=== PATIENT | male | born 1955 | race Caucasian/White ===

== ENCOUNTER 2017-07-12 19:57 | Emergency (ER) | payer OTHER ==
[2017-07-12 20:05] VITALS: RESP 18; TEMP 98.2
--- NOTE | 2017-07-12 20:13 | CPEKG ---
Heart Rate: 77 RR Interval: 779 P-R Interval: 204 QRSD Interval: 94 QT Interval: 384 QTC Interval: 435 P [place]: 39 QRS [place]: -23 T Wave [place]: 47 EKG Severity - OTHERWISE NORMAL ECG - EKG Impression: SINUS RHYTHM EKG Impression: BORDERLINE LEFT AXIS DEVIATION Electronically Signed By: Evangelina Mckeon 12-Jul-2017 22:35:19
--- NOTE | 2017-07-12 20:21 | EDPHY ---
H & P Time Seen by Provider: 07/12/17 20:08 HPI/ROS: CHIEF COMPLAINT: AICD fired HISTORY OF PRESENT ILLNESS: Patient is a 62-year-old male with a history of ventricular tachycardia status post AICD placement an ablation x2 presents to the emergency department after having his AICD fire. Patient states that he was lying down in bed when he began to feel dizzy. He placed his personal pulse oximeter which initially stated heart rate was 155 with a saturation of 97 %. His heart rate then went up to 200. The AICD fired. He denies any chest pain or palpitations. No shortness of breath. No recent illnesses. He has had no nausea or vomiting. No diaphoresis. He is asymptomatic at this time. REVIEW OF SYSTEMS: My complete review of systems is negative except as mentioned in the HPI. Past Medical/Surgical History: Includes ventricular tachycardia, bronchitis, chronic fatigue, anxiety Past surgical history: Includes AICD placement, tonsillectomy, appendectomy, ablation x2 Social history: Patient is . Does not smoke. He denies alcohol use. Smoking Status: Former smoker Physical Exam: Vitals noted GENERAL: Well-appearing, in no acute distress, alert. HEENT: Eyes normal to inspection, normal pharynx, no signs of dehydration. NECK: No thyromegaly, no lymphadenopathy, supple. RESPIRATORY: Clear to auscultation bilaterally, no rales, rhonchi or wheezing. CVS: Regular rate and rhythm, no rubs, murmurs, or gallops. Chest wall: Left upper chest AICD in place. No discoloration of the skin. ABDOMEN: Soft, nontender, nondistended, no organomegaly. BACK: Normal to inspection, no CVA tenderness. SKIN: Normal color, no rash, warm, dry. No pallor. EXTREMITIES: No pedal edema, no calf tenderness, no Homans sign or cords, no joint swelling. NEURO/PSYCH: Alert and oriented x3, normal mood and affect, normal motor sensory exam. Constitutional: Initial Vital Signs Temperature (C) 36.8 C 07/12/17 20:00 Heart Rate 81 07/12/17 20:00 Respiratory Rate 18 07/12/17 20:00 Blood Pressure 149/97 H 07/12/17 20:00 O2 Sat (%) 97 07/12/17 20:00 O2 Delivery Mode Room Air Allergies/Adverse Reactions: No Known Allergies Allergy (Verified 07/12/17 20:05) Home Medications: Medication Instructions Recorded Ascorbic Acid [Vitamin C 500 mg 500 mg PO BID 05/02/15 (*)] Cholecalciferol Vit D3 [Vitamin D3 2,000 units PO DAILY 05/02/15 2000 units] Herbals/Supplements -Info Only 1 ea PO DAILY 05/02/15 Aspirin [Aspirin 81mg (*)] 81 mg PO DAILY #0 tab 05/04/15 [place]-3 Fatty Acids [Fish Oil 1000 1,000 mg PO HS 06/01/15 mg (*)] SOTALOL 07/12/17 Medical Decision Making ED Course/Re-evaluation: In the emergency department I discussed possible etiologies with the patient. I answered all his questions. IV was placed. Laboratory studies, EKG and chest x-ray were obtained. I obtained his AICD cart and called to have his AICD interrogated. EKG: Sinus rhythm at 77. Borderline left axis deviation. Normal intervals. No ST or T-wave abnormalities. 2034: I discussed the case with Dr. Harmon from Cardiology. He reviewed the patient's record. He recommended laboratory studies, ekg, no CXR and no need for interrogation this evening. Cardiology will see the patient in the office this week. He recommends to continue the sotalol at 160 mg twice daily. 1055p: Patient's troponin, chemistry panel and CBC were normal. I discussed the results with the patient. I answered all his questions. Patient will follow up with Cardiology. He is given warnings prior to leaving. Differential Diagnosis: My differential includes but is not limited to ventricular tachycardia, dysrhythmia, ACS, acute GA, AICD malfunction - Data Points Laboratory Results: Laboratory Results 07/12/17 20:20 07/12/17 20:20 07/12/17 07/12/17 20:20 20:20 WBC 8.15 10^3/uL 10^3/uL (3.80-9.50) RBC 5.73 10^6/uL 10^6/uL (4.40-6.38) Hgb 18.1 g/dL H g/dL (13.7-17.5) Hct 50.7 % % (40.0-51.0) MCV 88.5 fL fL (81.5-99.8) MCH 31.6 pg pg (27.9-34.1) MCHC 35.7 g/dL g/dL (32.4-36.7) RDW 12.7 % % (11.5-15.2) Plt Count 265 10^3/uL 10^3/uL (150-400) MPV 9.3 fL fL (8.7-11.7) Neut % (Auto) 44.2 % % (39.3-74.2) Lymph % (Auto) 35.0 % % (15.0-45.0) [place] % (Auto) 13.9 % H % (4.5-13.0) Eos % (Auto) 5.3 % % (0.6-7.6) Baso % (Auto) 1.2 % % (0.3-1.7) Nucleat RBC Rel Count 0.0 % % (0.0-0.2) Absolute Neuts (auto) 3.61 10^3/uL 10^3/uL (1.70-6.50) Absolute Lymphs (auto) 2.85 10^3/uL 10^3/uL (1.00-3.00) Absolute Monos (auto) 1.13 10^3/uL H 10^3/uL (0.30-0.80) Absolute Eos (auto) 0.43 10^3/uL H 10^3/uL (0.03-0.40) Absolute Basos (auto) 0.10 10^3/uL 10^3/uL (0.02-0.10) Absolute Nucleated RBC 0.00 10^3/uL 10^3/uL (0-0.01) Immature Gran % 0.4 % % (0.0-1.1) Immature Gran # 0.03 10^3/uL 10^3/uL (0.00-0.10) Sodium 139 mEq/L mEq/L (134-144) Potassium 4.6 mEq/L mEq/L (3.5-5.2) Chloride 103 mEq/L mEq/L (97-110) Carbon Dioxide 23 mEq/l mEq/l (22-31) Anion Gap 13 mEq/L mEq/L (8-16) BUN 23 mg/dL mg/dL (7-23) Creatinine 1.0 mg/dL mg/dL (0.7-1.3) Estimated GFR > 60 Glucose 101 mg/dL H mg/dL (70-100) Calcium 9.4 mg/dL mg/dL (8.5-10.4) Troponin I 0.014 ng/mL ng/mL (0.000-0.034) Specimen Hemolysis 129 Medications Given: Discontinued Medications Sodium Chloride (Ns) 500 mls @ 1,000 mls/hr IV EDNOW ONE PRN Reason: Protocol Stop: 07/12/17 21:03 Last Admin: 07/12/17 20:41 Dose: 500 mls Departure - Departure Disposition: Home, Routine, Self-Care Clinical Impression: V-tach, AICD discharge Condition: Good Instructions: Tachycardia (ED) Additional Instructions: Return with chest pain, shortness of breath, repeat firing of your AICD, or any other concerns Referrals: Kameron Gorman MD [Primary Care Provider] - 5-7 days, call for appt. Josse Diggs MD [Medical Doctor] - 5-7 days, call for appt.
[2017-07-12] MEDS ORDERED: NS 500 ML IV ONE (20:34)
[2017-07-12 20:50] LABS: % IMMATURE GRANULYOCYTES 0.4 % (0.0-1.1); ABSOLUTE IMMATURE GRANULOCYTES 0.03 10^3/uL (0.00-0.10); ADD DIFF? NO; ADD MORPH? NO; ADD SCAN? NO; ATYPICAL LYMPHOCYTE FLAG 10 (0-99); FRAGMENT RBC FLAG 0 (0-99); HEMATOCRIT 50.7 % (40.0-51.0); HEMOGLOBIN 18.1 g/dL (13.7-17.5); LEFT SHIFT FLG 0 (0-99); LIPEMIA HEMOLYSIS FLAG 90 (0-99); MEAN CELL HEMOGLOBIN 31.6 pg (27.9-34.1); MEAN CELL HEMOGLOBIN CONCENTR. 35.7 g/dL (32.4-36.7); MEAN CELL VOLUME 88.5 fL (81.5-99.8); MEAN PLATELET VOLUME 9.3 fL (8.7-11.7); PLATELET CLUMPS FLAG 10 (0-99); PLATELET COUNT 265 10^3/uL (150-400); RED BLOOD CELL COUNT 5.73 10^6/uL (4.40-6.38); RED CELL DISTRIBUTION WIDTH 12.7 % (11.5-15.2)
[2017-07-12 21:03] LABS: ANION GAP 13 mEq/L (8-16); CALCIUM 9.4 mg/dL (8.5-10.4); CARBON DIOXIDE 23 mEq/l (22-31); CHLORIDE 103 mEq/L (97-110); GLOMERULAR FILTRATION RATE > 60; GLUCOSE 101 mg/dL (70-100); POTASSIUM 4.6 mEq/L (3.5-5.2); SODIUM 139 mEq/L (134-144); SPECIMEN HEMOLYSIS 129
[2017-07-12 21:14] LABS: TROPONIN I 0.014 ng/mL (0.000-0.034)
[2017-07-12 22:18] VITALS: BP 126/73; PULSE 70; O2SAT 92
== END 2017-07-12 22:17 | disposition home or self-care (01) ==
DX: T82.198A Other mechanical complication of other cardiac electronic device, initial encounter (principal); E86.9 Volume depletion, unspecified; Z79.82 Long term (current) use of aspirin; Z87.891 Personal history of nicotine dependence; Y82.8 Other medical devices associated with adverse incidents

== ENCOUNTER 2017-07-18 10:24 | Inpatient (IN) | payer OTHER ==
--- NOTE | 2017-07-18 10:36 | CPEKG ---
Heart Rate: 70 RR Interval: 857 P-R Interval: 228 QRSD Interval: 88 QT Interval: 384 QTC Interval: 415 P [place]: 47 QRS [place]: -30 T Wave [place]: 44 EKG Severity - ABNORMAL ECG - EKG Impression: ATRIAL-PACED COMPLEXES EKG Impression: FIRST DEGREE AV BLOCK EKG Impression: PROBABLE LEFT ATRIAL ABNORMALITY EKG Impression: LEFT AXIS DEVIATION Electronically Signed By: Justin Gaviria 20-Jul-2017 11:04:31
--- NOTE | 2017-07-18 10:42 | EDPHY ---
HPI/HX/ROS/PE/MDM Narrative: CHIEF COMPLAINT: Rapid heart rate, shocked by defibrillator HPI: The patient is a 62 y/o male arriving with his at the referral of Dr. Gaviria for rapid heart rate and shock from his internal defibrillator around 08:30 , about 2 hours ago. He has a history of "v-tach storms" and has been shocked by his defibrillator previously. He was here one week ago for the same issue. Today he was resting outside when he began to feel a rapid heart rate. His home pulseox showed a rate of 185 and he was shocked shortly afterwards. He called his basketball assembler and was referred to the ED. He currently feels fatigued, but otherwise normal. REVIEW OF SYSTEMS: Aside from elements discussed in the HPI, a comprehensive 10-point review of systems was reviewed and is negative. PMH: Ventricular tachycardia, implanted defibrillator SOCIAL HISTORY: at bedside. Lives in [place]. PHYSICAL EXAM: General:Patient is alert, in no acute distress. ENT:Eyes are normal to inspection. ENT inspection normal. Neck: Normal inspection. Full range of motion. Respiratory:No respiratory distress. Breath sounds normal bilaterally. Cardiovascular: Regular rate and rhythm. Strong peripheral pulses. Normal cap refill. Abdomen:The abdomen is nontender to palpation. There are no peritoneal signs. Back: Normal to inspection. No tenderness to palpation. Skin: Normal color. No rash. Warm and dry. Extremities: Normal appearance. Full range of motion. Neuro: Oriented x3. Normal motor function. Normal sensory function. ED Course: This is a 62 y/o male with a history of v-tach and implanted defibrillator who presents after experiencing a rapid heart rate and subsequent shock from his defibrillator. His exam is unremarkable. Plan for IV, labs, EKG, and pacer interrogation by the maitre d. The 12 lead EKG was interpreted by myself. Sinus mechanism. See hard copy and/ or "tracemaster" electronic copy for interpretation. Interrogation showed appropriate shock for VT per interrogator. 1222: Consulted with Dr. Gaviria, patient's basketball assembler. He plans to admit patient here for further evaluation. MDM: This patient presents with recurrent VT, appropriately shocked by AICD. Given his frequent episodes, Dr. Gaviria feels he requires admission and medical treatment. I see no indication of ACS, PE, TAD or PNA. - Data Points Laboratory Results: Laboratory Results 07/18/17 10:40 07/18/17 10:40 07/18/17 07/18/17 10:40 10:40 WBC 5.76 10^3/uL 10^3/uL (3.80-9.50) RBC 6.09 10^6/uL 10^6/uL (4.40-6.38) Hgb 19.0 g/dL H g/dL (13.7-17.5) Hct 54.3 % H % (40.0-51.0) MCV 89.2 fL fL (81.5-99.8) MCH 31.2 pg pg (27.9-34.1) MCHC 35.0 g/dL g/dL (32.4-36.7) RDW 12.8 % % (11.5-15.2) Plt Count 270 10^3/uL 10^3/uL (150-400) MPV 9.1 fL fL (8.7-11.7) Neut % (Auto) 52.3 % % (39.3-74.2) Lymph % (Auto) 25.0 % % (15.0-45.0) [place] % (Auto) 16.1 % H % (4.5-13.0) Eos % (Auto) 4.9 % % (0.6-7.6) Baso % (Auto) 1.4 % % (0.3-1.7) Nucleat RBC Rel Count 0.0 % % (0.0-0.2) Absolute Neuts (auto) 3.01 10^3/uL 10^3/uL (1.70-6.50) Absolute Lymphs (auto) 1.44 10^3/uL 10^3/uL (1.00-3.00) Absolute Monos (auto) 0.93 10^3/uL H 10^3/uL (0.30-0.80) Absolute Eos (auto) 0.28 10^3/uL 10^3/uL (0.03-0.40) Absolute Basos (auto) 0.08 10^3/uL 10^3/uL (0.02-0.10) Absolute Nucleated RBC 0.00 10^3/uL 10^3/uL (0-0.01) Immature Gran % 0.3 % % (0.0-1.1) Immature Gran # 0.02 10^3/uL 10^3/uL (0.00-0.10) Sodium 141 mEq/L mEq/L (134-144) Potassium 4.4 mEq/L mEq/L (3.5-5.2) Chloride 102 mEq/L mEq/L (97-110) Carbon Dioxide 26 mEq/l mEq/l (22-31) Anion Gap 13 mEq/L mEq/L (8-16) BUN 17 mg/dL mg/dL (7-23) Creatinine 1.1 mg/dL mg/dL (0.7-1.3) Estimated GFR > 60 Glucose 69 mg/dL L mg/dL (70-100) Calcium 10.1 mg/dL mg/dL (8.5-10.4) General Time Seen by Provider: 07/18/17 10:34 Initial Vital Signs: Initial Vital Signs Temperature (C) 36.6 C 07/18/17 10:26 Heart Rate 69 07/18/17 10:26 Respiratory Rate 20 07/18/17 10:26 Blood Pressure 106/80 07/18/17 10:26 O2 Sat (%) 96 07/18/17 10:26 O2 Delivery Mode Room Air O2 (L/minute) 2 Allergies/Adverse Reactions: No Known Allergies Allergy (Verified 07/18/17 10:26) Home Medications: Medication Instructions Recorded Ascorbic Acid [Vitamin C 500 mg 500 mg PO BID 05/02/15 (*)] Cholecalciferol Vit D3 [Vitamin D3 2,000 units PO DAILY 05/02/15 2000 units] Herbals/Supplements -Info Only 1 ea PO DAILY 05/02/15 Aspirin [Aspirin 81mg (*)] 81 mg PO DAILY #0 tab 05/04/15 [place]-3 Fatty Acids [Fish Oil 1000 1,000 mg PO HS 06/01/15 mg (*)] Sotalol HCl [SOTALOL] 160 mg PO BID 07/12/17 LORazepam [Ativan (*)] 0.5 - 1 mg PO BID PRN 07/18/17 LORazepam [Ativan (*)] 1 mg PO HS 07/18/17 Melatonin [Melatonin 3 MG (*)] 3 mg PO HS PRN 07/18/17 Mexiletine HCl [Mexitil] 200 mg PO Q8HRS #90 cap 07/20/17 Departure - Departure Disposition: [facility] Inpatient Acute Clinical Impression: Ventricular tachycardia Condition: Fair Report Scribed for: Fran Espana Report Scribed by: Lana Deleon Date of Report: 07/18/17 Time of Report: 10:42 Physician Review and Approval Statement: Portions of this note were transcribed by an ED scribe. I personally performed the history, physical exam, and medical decision making; and confirm the accuracy of the information in the transcribed note.
[2017-07-18 10:47] LABS: % IMMATURE GRANULYOCYTES 0.3 % (0.0-1.1); ABSOLUTE IMMATURE GRANULOCYTES 0.02 10^3/uL (0.00-0.10); ADD DIFF? NO; ADD MORPH? NO; ADD SCAN? NO; ATYPICAL LYMPHOCYTE FLAG 10 (0-99); FRAGMENT RBC FLAG 0 (0-99); HEMATOCRIT 54.3 % (40.0-51.0); LEFT SHIFT FLG 0 (0-99); LIPEMIA HEMOLYSIS FLAG 90 (0-99); MEAN CELL HEMOGLOBIN 31.2 pg (27.9-34.1); MEAN CELL VOLUME 89.2 fL (81.5-99.8); MEAN PLATELET VOLUME 9.1 fL (8.7-11.7); PLATELET CLUMPS FLAG 0 (0-99); PLATELET COUNT 270 10^3/uL (150-400); RED BLOOD CELL COUNT 6.09 10^6/uL (4.40-6.38); RED CELL DISTRIBUTION WIDTH 12.8 % (11.5-15.2)
[2017-07-18 11:01] LABS: ANION GAP 13 mEq/L (8-16); CALCIUM 10.1 mg/dL (8.5-10.4); CARBON DIOXIDE 26 mEq/l (22-31); CHLORIDE 102 mEq/L (97-110); CREATININE 1.1 mg/dL (0.7-1.3); GLOMERULAR FILTRATION RATE > 60; GLUCOSE 69 mg/dL (70-100); POTASSIUM 4.4 mEq/L (3.5-5.2); SODIUM 141 mEq/L (134-144)
--- NOTE | 2017-07-18 14:52 | PDGENHP ---
History and Physical - Chief Complaint ICD discharge - History of Present Illness Had ICD discharge this morning, no associated exertion. No CP. Did feel palpitations prior to that. Called me and I asked him to go to ED, device check in ED showed appropriate ICD therapy for VT. History Information - Allergies/Home Medication List Allergies/Adverse Reactions: No Known Allergies Allergy (Verified 07/18/17 10:26) Home Medications: Ascorbic Acid [Vitamin C 500 mg (*)] 500 mg PO BID 05/02/15 [Last Taken 07/18/17 ] Cholecalciferol Vit D3 [Vitamin D3 2000 units] 2,000 units PO DAILY 05/02/15 [ Last Taken 07/18/17] Herbals/Supplements -Info Only 1 ea PO DAILY 05/02/15 [Last Taken 07/17/17] [place]-3 Fatty Acids [Fish Oil 1000 mg (*)] 1,000 mg PO HS 06/01/15 [Last Taken 07/17/17] Sotalol HCl [Sotalol] 160 mg PO BID 07/12/17 [Last Taken 07/18/17 09:00] LORazepam [Ativan (*)] 0.5 - 1 mg PO BID PRN 07/18/17 [Last Taken Unknown] LORazepam [Ativan (*)] 1 mg PO HS 07/18/17 [Last Taken 07/17/17] Melatonin [Melatonin 3 MG (*)] 3 mg PO HS PRN 07/18/17 [Last Taken Unknown] I have personally reviewed and updated: family history, medical history (VT - 2 ablations - 1. [facility] w Dr. Diggs 2. [facility]), social history, surgical history - Social History Smoking Status: Former smoker Review of Systems Review of Systems: ROS: 10pt was reviewed & negative except for what was stated in HPI & below Physical Exam Physical Exam: Temp Pulse Resp BP Pulse Ox 37.1 C 70 17 120/75 95 07/18/17 14:47 07/18/17 14:47 07/18/17 14:47 07/18/17 14:47 07/18/17 14:47 O2 (L/minute) 2 Constitutional: no apparent distress, appears nourished Eyes: PERRL, EOMI Ears, Nose, Mouth, Throat: moist mucous membranes, hearing normal Cardiovascular: regular rate and rhythym, no murmur, rub, or gallop Respiratory: no respiratory distress Gastrointestinal: normoactive bowel sounds, soft, non-tender abdomen, no palpable masses Genitourinary: no bladder fullness Skin: warm Musculoskeletal: full muscle strength Neurologic: AAOx3, sensation intact bilaterally, weakness Lab Data & Imaging Review 07/18/17 10:40 07/18/17 10:40 WBC 5.76 10^3/uL (3.80-9.50) 07/18/17 10:40 RBC 6.09 10^6/uL (4.40-6.38) 07/18/17 10:40 Hgb 19.0 g/dL (13.7-17.5) H 07/18/17 10:40 Hct 54.3 % (40.0-51.0) H 07/18/17 10:40 MCV 89.2 fL (81.5-99.8) 07/18/17 10:40 MCH 31.2 pg (27.9-34.1) 07/18/17 10:40 MCHC 35.0 g/dL (32.4-36.7) 07/18/17 10:40 RDW 12.8 % (11.5-15.2) 07/18/17 10:40 Plt Count 270 10^3/uL (150-400) 07/18/17 10:40 MPV 9.1 fL (8.7-11.7) 07/18/17 10:40 Neut % (Auto) 52.3 % (39.3-74.2) 07/18/17 10:40 Lymph % (Auto) 25.0 % (15.0-45.0) 07/18/17 10:40 [place] % (Auto) 16.1 % (4.5-13.0) H 07/18/17 10:40 Eos % (Auto) 4.9 % (0.6-7.6) 07/18/17 10:40 Baso % (Auto) 1.4 % (0.3-1.7) 07/18/17 10:40 Nucleat RBC Rel Count 0.0 % (0.0-0.2) 07/18/17 10:40 Absolute Neuts (auto) 3.01 10^3/uL (1.70-6.50) 07/18/17 10:40 Absolute Lymphs (auto) 1.44 10^3/uL (1.00-3.00) 07/18/17 10:40 Absolute Monos (auto) 0.93 10^3/uL (0.30-0.80) H 07/18/17 10:40 Absolute Eos (auto) 0.28 10^3/uL (0.03-0.40) 07/18/17 10:40 Absolute Basos (auto) 0.08 10^3/uL (0.02-0.10) 07/18/17 10:40 Absolute Nucleated RBC 0.00 10^3/uL (0-0.01) 07/18/17 10:40 Immature Gran % 0.3 % (0.0-1.1) 07/18/17 10:40 Immature Gran # 0.02 10^3/uL (0.00-0.10) 07/18/17 10:40 Sodium 141 mEq/L (134-144) 07/18/17 10:40 Potassium 4.4 mEq/L (3.5-5.2) 07/18/17 10:40 Chloride 102 mEq/L (97-110) 07/18/17 10:40 Carbon Dioxide 26 mEq/l (22-31) 07/18/17 10:40 Anion Gap 13 mEq/L (8-16) 07/18/17 10:40 BUN 17 mg/dL (7-23) 07/18/17 10:40 Creatinine 1.1 mg/dL (0.7-1.3) 07/18/17 10:40 Estimated GFR > 60 07/18/17 10:40 Glucose 69 mg/dL (70-100) L 07/18/17 10:40 Calcium 10.1 mg/dL (8.5-10.4) 07/18/17 10:40 Visualized and Interpreted EKG results: Yes EKG Interpretation: Positive for: normal sinsus rhythm Assessment & Plan Assessment: Ventricular tachycardia (Acute) Plan: 62 M with recurrent VT. Ablation by Dr. Diggs in 2015. Ablation at [place] in 2016 complicated by pericardial effusion. Did well for 1 yr post 2nd ablation, now has had 4 ICD discharges Plan: 1. Continue sotalol 2. Start mexilitine 3. No driving x 6 mo, discussed this with patient and 4. Consider repeat ablation 5. PET CT to evaluate for sarcoidosis, being arranged for as outpatient.
[2017-07-18] MEDS: LORazepam 1 MG TAB PO PRN (17:07)
--- NOTE | 2017-07-18 17:48 | ECHO ---
[email or web address] [address] [address] Main: [phone] Fax: Transthoracic Echocardiogram Name: REAL SOLIS MR#: [id number] Study Date: 07/18/2017 Study Time: 04:05 PM Date of : 1955 Age: 62 year(s) Height: 175.3 cm (69 in.) Weight: 107.5 kg (237 lb.) BSA: 2.22 m2 Gender: Male Examination: Echo Indication: vtach Image Quality: Technically Difficult Contrast: Requested by: Justin Gaviria BP: 120 mmHg/75 mmHg Heart Rate: Rhythm: Normal sinus rhythm Indication: vtach Procedure Staff Roustabout Crew Leader: Loraine Moralez Reading Physician: Justin Gaviria Requesting Provider: Conclusions: Normal global systolic LV function. Grade 1 diastolic dysfunction (abnormal relaxation). Questionable basal inferior and basal inferolateral hypokinesis versus normal variant. Due to poor endocardial definition it is difficult to assess. There is an ICD lead noted in the right ventricle. Mild mitral valve regurgitation is present. Mildly dilated ascending aorta measuring 3.9 cm. Measurements: Chambers Valvular Assessment AV/MV Valvular Assessment TV/PV Normal Normal Normal Name Value Range Name Value Range Name Value Range IVSd (2D): 1.5 cm (0.6 cm-1.1 AV Vmax: 0.83 m/s (1 m/s-1.7 PV Vmax: 0.87 m/s (0.6 m/s-0.9 cm) m/s) m/s) LVDd (2D): 4.4 cm (4.2 cm-5.9 AV maxP mmHg ( - ) PV PGmax: 3 mmHg ( - ) cm) LVOT Vmax: 0.76 m/s (0.7 m/s-1.1 LVDs (2D): 3.0 cm (2.1 cm-4 m/s) cm) MV E Vmax: 0.51 m/s ( - ) LVPWd (2D): 1.3 cm (0.6 cm-1 MV A Vmax: 0.78 m/s ( - ) cm) MV E/A: 0.65 ( - ) LVEF (BP): 63 % (>=55 %) Continued Measurements: Chambers Valvular Assessment AV/MV Name Value Name Value LADs Lon.6 cm MV DecTime: 271 m/s LA Area: 15.3 cm2 MV E' Septal: 0.04 m/s LA Volume: 49 ml MV E/E' Septal: 12.10 Patient: REAL SOLIS Study Date: 07/18/2017 Page 1 of 2 04:05 PM LA Volume Index: 22.1 ml/m2 MV E/E' Lateral: 8.10 RA Area: 16.0 cm2 Additional Vessels Name Value Ao Ascendin.9 cm Findings: Left Ventricle: Normal size left ventricle. Concentric LV hypertrophy. Normal global systolic LV function. EF is 63 %. Grade 1 diastolic dysfunction (abnormal relaxation). Questionable basal inferior and basal inferolateral hypokinesis versus normal variant. Due to poor endocardial definition it is difficult to assess. Right Ventricle: Normal size right ventricle. Normal RV function. There is an ICD lead noted in the right ventricle. Left Atrium: The left atrium is normal in size. Right Atrium: The right atrium is normal in size. Mitral Valve: The mitral valve is normal in appearance and function. Mild mitral valve regurgitation is present. No mitral stenosis is present. Aortic Valve: The aortic valve is normal in appearance and function. The aortic valve is tri-leaflet. Trivial to mild aortic valve regurgitation. No aortic valve stenosis is present. Tricuspid Valve: The tricuspid valve is normal in appearance and function. Trivial tricuspid valve regurgitation. Pulmonary artery pressure is not obtained due to inadequate TR jet. Pulmonic Valve: Pulmonary valve not well visualized. Trivial pulmonic valve regurgitation. Aorta: The aorta is normal. Normal size aortic root measuring 3.6 cm. Mildly dilated ascending aorta measuring 3.9 cm. IVC: The IVC is normal sized. Pericardium: Trace anterior pericardial effusion versus fat pad. (No Signature Object) Patient: REAL SOLIS Study Date: 07/18/2017 Page 2 of 2 04:05 PM [id number]
[2017-07-18] MEDS: OMEGA-3 FATTY ACIDS 1,000 MG CAP PO SCH (20:16)
[2017-07-18] MEDS: SOTALOL HCL 80 MG TAB PO SCH (20:16)
[2017-07-18] MEDS: LORazepam 1 MG TAB PO SCH (20:16)
[2017-07-18] MEDS: MEXILETINE HCL 200 MG CAP PO SCH (21:25)
[2017-07-19] MEDS: MELATONIN 3 MG TAB PO PRN ×2 (01:08→23:48)
[2017-07-19 05:32] LABS: % IMMATURE GRANULYOCYTES 0.2 % (0.0-1.1); ABSOLUTE IMMATURE GRANULOCYTES 0.01 10^3/uL (0.00-0.10); ADD DIFF? NO; ADD MORPH? NO; ADD SCAN? NO; ATYPICAL LYMPHOCYTE FLAG 0 (0-99); FRAGMENT RBC FLAG 0 (0-99); HEMATOCRIT 50.8 % (40.0-51.0); HEMOGLOBIN 17.5 g/dL (13.7-17.5); LEFT SHIFT FLG 0 (0-99); LIPEMIA HEMOLYSIS FLAG 90 (0-99); MEAN CELL HEMOGLOBIN 30.8 pg (27.9-34.1); MEAN CELL HEMOGLOBIN CONCENTR. 34.4 g/dL (32.4-36.7); MEAN CELL VOLUME 89.3 fL (81.5-99.8); MEAN PLATELET VOLUME 9.4 fL (8.7-11.7); PLATELET CLUMPS FLAG 10 (0-99); PLATELET COUNT 238 10^3/uL (150-400); RED BLOOD CELL COUNT 5.69 10^6/uL (4.40-6.38); RED CELL DISTRIBUTION WIDTH 12.8 % (11.5-15.2)
[2017-07-19 05:41] LABS: ANION GAP 12 mEq/L (8-16); CALCIUM 9.5 mg/dL (8.5-10.4); CARBON DIOXIDE 21 mEq/l (22-31); CHLORIDE 104 mEq/L (97-110); GLOMERULAR FILTRATION RATE > 60; GLUCOSE 83 mg/dL (70-100); MAGNESIUM 1.9 mg/dL (1.6-2.3); POTASSIUM 4.4 mEq/L (3.5-5.2); SODIUM 137 mEq/L (134-144)
[2017-07-19] MEDS: MEXILETINE HCL 200 MG CAP PO SCH ×3 (05:54→21:48)
[2017-07-19] MEDS: LORazepam 1 MG TAB PO PRN ×2 (07:29→12:08)
[2017-07-19] MEDS: CHOLECALCIFEROL VIT D3 1,000 UNITS TAB PO SCH (07:58)
[2017-07-19] MEDS: ASPIRIN 81 MG CHEWABLE TAB PO SCH (07:58)
[2017-07-19] MEDS: SOTALOL HCL 80 MG TAB PO SCH ×2 (07:58→20:12)
[2017-07-19] MEDS: ENOXAPARIN 30 MG/0.3 ML SYR SC SCH (07:58)
--- NOTE | 2017-07-19 10:01 | PDCARPN ---
Cardiology Progress Note Assessment/Plan: Assessment: 1. Ventricular tachycardia Plan: Continue sotalol 160 mg twice daily. Patient has been started on mexiletine 200 mg three times daily and is tolerating the drug well. Anticipate discharge tomorrow if remains stable. He will have PET-CT scan of the heart to rule out sarcoidosis, this will be arranged as an outpatient by Dr. Josse Diggs's nurse. He may need further ablation procedure for ventricular tachycardia. 07/19/17 10:00 Subjective: No new complaints Objective: Vital Signs (8 Hrs) Temp Pulse Resp BP Pulse Ox 07/19/17 07:16 36.6 C 70 16 107/69 93 07/19/17 05:55 70 120/76 07/19/17 04:00 36.7 C 68 14 97/64 L 96 Intake/Output (24 Hrs) 07/17/17 07/18/17 07/19/17 11:59 11:59 11:59 Intake Total 1250 Balance 1250 Intake: Oral (ml) 1250 IV Intake (ml) 0 Other: Number of Voids Toilet 2 Number of Stools Toilet 2 Result Diagrams: 07/19/17 04:28 07/19/17 04:28 Telemetry: Normal sinus rhythm ICD10 Worksheet Patient Problems: Problems Problem Status Onset Transaminitis Acute Ventricular tachycardia Acute
--- NOTE | 2017-07-19 13:54 | ASMTCMCOM ---
CM Note CM Note Notes: 62 year old male admitted for VT, Transaminitis ICD discharge. Patient has a hx of 2 ablations 2014 & 2016. Being tx medically, may need another ablation. Might be discharged Thursday with no needs at this time. Date Signed: 07/19/2017 01:54 PM Electronically Signed By:Tiarra Walls LCSW
[2017-07-19] MEDS: LORazepam 1 MG TAB PO SCH (20:12)
[2017-07-19] MEDS: OMEGA-3 FATTY ACIDS 1,000 MG CAP PO SCH (20:18)
[2017-07-20] MEDS ORDERED: MEXILETINE HCL 200 MG CAP PO SCH
[2017-07-20 03:22] VITALS: PULSE 70; TEMP 98.2
[2017-07-20] MEDS: MEXILETINE HCL 200 MG CAP PO SCH (05:36)
[2017-07-20 07:34] VITALS: BP 116/66; RESP 18; O2SAT 90
[2017-07-20] MEDS: CHOLECALCIFEROL VIT D3 1,000 UNITS TAB PO SCH (08:51)
[2017-07-20] MEDS: ASPIRIN 81 MG CHEWABLE TAB PO SCH (08:51)
[2017-07-20] MEDS: ENOXAPARIN 30 MG/0.3 ML SYR SC SCH (08:51)
[2017-07-20] MEDS: LORazepam 1 MG TAB PO PRN (08:51)
[2017-07-20] MEDS: SOTALOL HCL 80 MG TAB PO SCH (08:52)
--- NOTE | 2017-07-20 10:59 | GDS ---
[f rep st] DISCHARGE SUMMARY PRIMARY 3D MODELER: Josse Diggs MD. DISCHARGE DIAGNOSES: 1. Recurrent ventricular tachycardia with 2 recent discharges from his implantable cardioverter-defi brillator. He was on sotalol prior to admission, and mexiletine was added. 2. Status post implantable cardioverter-defibrillator. 3. Chronic diarrhea. HOSPITAL COURSE: For a detailed H and P, please see prior dictation. Briefly, The patient is a 62-y ear-old male with a history of recurrent ventricular tachycardia and normal ejection fraction. He vides d a VT ablation by Dr. Diggs in 2015 and then ablation at the [facility] in 2016. His most recent ab lation was complicated by pericardial effusion requiring pericardial centesis. He had ventricular ta chycardia with an ICD discharge on Thursday. He was admitted to the hospital and had another dischar ge on Thursday. Prior to admission, he was on sotalol 160 mg b.i.d., and therefore, mexiletine 200 mg t.i.d. was added during this hospitalization. He is currently in normal sinus rhythm with rare PVCs. He is currently followed by Dr. Diggs as an outpatient. There was some concern for sarcoidosis and therefore, PET-CT of the heart has been ordered but not yet done. He currently denies any chest disc omfort, shortness of breath, or palpitations. He had 1 event last night where he felt like his arms were weak. I did look at the monitor at the time that he had the symptoms and he was in sinus rhythm . He has adjusted his supplemental medications over the last few months. He was on high doses of magne sium but complained of diarrhea and therefore, decreased his dose approximately 3 weeks ago. His mag nesium was 1.9 during his hospitalization. He has also had low testosterone and started on supplemen tation. Three weeks prior to admission, his testosterone was elevated at 702. He was told to hold t estosterone for 3 weeks and then resumed at a lower dose. He has only been off the medication for ap proximately a week at this point. PHYSICAL EXAMINATION: GENERAL: Patient appears in no acute distress. VITALS: Blood pressure 116/6 6, heart rate 70, oxygen saturation of 90% on room air, afebrile. LUNGS: Clear to auscultation. No wheezes, rhonchi, or crackles auscultated. CARDIAC: Regular rate and rhythm without any significan t murmurs, rubs, or gallops appreciated. EXTREMITIES: Palpable pulses bilaterally without any evide nce of edema. DISCHARGE MEDICATIONS: His medical regimen will remain the same except for the addition of mexiletin e 200 mg t.i.d. He will continue vitamin D3, vitamin C, herbal supplement, aspirin 81 mg daily, fish oil 1000 mg at bedtime, sotalol 160 mg b.i.d., melatonin p.r.n. at nighttime, Ativan p.r.n. for anxi ety. PLAN: The patient is currently stable and ready for discharge home. He has not had any ventricular tachycardia throughout the night. He is currently in sinus rhythm with intermittent pacing. He will follow up with Dr. Diggs as scheduled on August 05 at 10:15 a.m. If he has any recurrent dischar ges from his device, he knows to contact our office probably or present to the ER. He will continue sotalol as well as mexiletine. He is aware he is not to drive until he discusses this with Dr. Diggs at his followup visit in 2-3 weeks. /[id number]/MODL
--- NOTE | 2017-07-20 16:22 | ASDISCHSUM ---
Discharge Information Plan Status:Home with No Needs Medically Cleared to Leave:07/19/2017 Discharge Date:07/20/2017 12:35 PM CM D/C Disposition:Home, Routine, Self-Care ADT D/C Disposition:Home, Routine, Self-Care Projected Discharge Date:07/20/2017 12:35 PM Transportation at D/C:Family Discharge Delay Reason: Follow-Up Date:07/20/2017 12:35 PM Discharge Slot: Final Diagnosis:VT, Transaminitis Placement Information Patient Contact Information Contact Name:LETITIA Relationship: [address] Work Phone: City:[place] Alternate Phone: [facility]/Zip Code:[place] [address] Email: Financial Information Financial Class:[employer] Primary Plan Desc:MIRANDA Sreekanth [facility] Primary Plan Number:[id number] Secondary Plan Desc: Secondary Plan Number: Assessment Information LACE LACE Acuity / Level of Care Answers: Was the patient admitted to hospital via the emergency department? Yes: Emergency dept visits in Answers: 2 last 6 months Score: 5 Date Signed: 07/18/2017 12:36 PM Electronically Signed By:Nubia Razo RN [facility] CM Progress Note CM Note CM Note Notes: 62 year old male admitted for VT, Transaminitis ICD discharge. Patient has a hx of 2 ablations 2015 & 2016. Being tx medically, may need another ablation. Might be discharged Thursday with no needs at this time. Date Signed: 07/19/2017 01:54 PM Electronically Signed By:Tiarra Walls LCSW Intervention Information Intervention Type:*Incorrect Registration Date of Service:07/18/2017 02:57 PM Patient Type:Inpatient Staff Member:SASHA aDvey, [place] Hours:0.25 Discipline: Severity:1 (0-1 Hours) Comment:Registered observation, written admit order for inpatient status.
== END 2017-07-20 12:35 | disposition home or self-care (01) | DRG 310 ==
LOC: F2W 13:29 → OBSVTOIN 14:57
PROVIDERS: ADMIT Internal Medicine Cardiovascular Disease; ATTEND Internal Medicine Cardiovascular Disease
DX: I47.2 Ventricular tachycardia (principal); Z95.810 Presence of automatic (implantable) cardiac defibrillator; F41.9 Anxiety disorder, unspecified; K52.9 Noninfective gastroenteritis and colitis, unspecified; Z79.82 Long term (current) use of aspirin; Z87.891 Personal history of nicotine dependence
CPT/HCPCS: J1650

== ENCOUNTER 2017-09-21 11:06 | Day surgery (SDC) | payer OTHER ==
[2017-09-21 11:39] VITALS: PULSE 70
[2017-09-21] MEDS ORDERED: LR 1,000 ML IV ONE (11:39)
--- NOTE | 2017-09-21 12:01 | PDANEPAE ---
ANE History of Present Illness colonoscopy ANE Past Medical History - Cardiovascular History Hx Hypertension: Yes Hx Arrhythmias: Yes Hx Chest Pain: No Hx Coronary Artery / Peripheral Vascular Disease: Yes Cardiovascular History Comment: V TACH. HX [place]. CAD. CARDIAC CATH 12/2013. hyperlipidemia. hx of pericardial effusion - Pulmonary History Hx COPD: No Hx Asthma/Reactive Airway Disease: No Hx Recent Upper Respiratory Infection: No Hx Oxygen in Use at Home: Yes O2 in Use at Home (L/minute): 1.5l with cpap Hx Sleep Apnea: Yes Sleep Apnea Screening Result - Last Documented: Positive Pulmonary History Comment: huan positive uses cpap at noc- instructed pt to bring to hospital - Neurologic History Hx Cerebrovascular Accident: No Hx Seizures: No Hx Dementia: No - Endocrine History Hx Diabetes: No - Renal History Hx Renal Disorders: No - Liver History Hx Hepatic Disorders: No - Neurological & Psychiatric Hx Hx Neurological and Psychiatric Disorders: Yes Neurological / Psychiatric History Comment: anxiety r/t cardiac shockings - Cancer History Hx Cancer: No - Congenital Disorder History Hx Congenital Disorders: No - GI History Hx Gastrointestinal Disorders: Yes Gastrointestinal History Comment: chronic diarrhea. - Other Health History Other Health History: chronic fatigue. wears reading glasses - Chronic Pain History Chronic Pain: No - Surgical History Prior Surgeries: cardiac ablations x2. aicd 05/2014. R INGUINAL HERNIA 1977. 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: [employer] Pacemaker Model: Guidant Pacemaker Mode: DDD-RhythmIQ Pacemaker Set Rate: 70 Date Pacemaker Last Checked: 06/08/17 ANE Patient History - Allergies Allergies/Adverse Reactions: No Known Allergies Allergy (Verified 09/01/17 14:20) - Home Medications Home medications: home medication list seen and reviewed Home Medications: RX: Herbals/Supplements -Info Only 05/02/15 [Last Taken 09/20/17 08:00] RX: Sotalol HCl [SOTALOL] 07/12/17 [Last Taken 09/21/17 09:00] RX: LORazepam [Ativan (*)] 0.5 PRN 07/18/17 [Last Taken 09/21/17 11:15] RX: Melatonin [Melatonin 3 MG (*)] 07/18/17 [Last Taken 09/20/17 22:00] RX: Aspirin [Aspirin 81mg (*)] 09/01/17 [Last Taken 09/17/17] RX: Mexiletine HCl [Mexitil] 09/01/17 [Last Taken 09/21/17 05:45] - NPO status NPO Status: no food or drink >8 hours NPO Since - Liquids (Date): 09/20/17 NPO Since - Liquids (Time): 21:00 NPO Since - Solids (Date): 09/20/17 NPO Since - Solids (Time): 09:00 - Anes Hx Anes Hx: post operative nausea and vomiting - Smoking Hx Smoking Status: Former smoker - Family Anes Hx Family Anes Hx: none Family Hx Anesthesia Complications: none ANE Labs/Vital Signs - Vital Signs Blood Pressure: 124/82 Heart Rate: 70 Respiratory Rate: 16 O2 Sat (%): 97 Height: 175.26 cm Weight: 102.058 kg ANE Physical Exam - Airway Neck exam: FROM Mallampati Score: Class 1 Mouth exam: normal dental/mouth exam - Pulmonary Pulmonary: no respiratory distress - Cardiovascular Cardiovascular: regular rate and rhythym - ASA Status ASA Status: III ANE Anesthesia Plan Total IV Anesthesia: Yes
[2017-09-21] MEDS ORDERED: INDOMETHACIN 50 MG SUPP PR PRN (12:14)
--- NOTE | 2017-09-21 12:14 | PDGENHP ---
History & Physical Chief Complaint: diarrhea History of Present Illness: 62 year old male presents with diarrhea and blood in his stools. Pertinent Past, Social, Family History: PMHx: CAD, WANG, Vtach. PsurgHx: pacer. FaMHx: no polyps or CRC Relevant Physical Exam: HEENT: anicteric. Cv: RRR +s1s2. lungs:CTAB. Abd: soft, nt, + bs Cardiorespiratory Assessment: ASA 3
[2017-09-21] MEDS ORDERED: NS 500 ML IV SCH (12:15)
[2017-09-21] MEDS ORDERED: PROPOFOL/EMULSION 500 MG/50 ML BOTTLE IV ONE (12:17)
[2017-09-21] MEDS ORDERED: LIDOCAINE 2% 100 MG/5 ML SYR ONE (12:17)
[2017-09-21] MEDS ORDERED: PHENYLEPHRINE HCL 100 MCG/ML SYR ONE (12:43)
[2017-09-21] MEDS ORDERED: PHENYLEPHRINE HCL 100 MCG/ML SYR IVP PRN (12:50)
[2017-09-21] MEDS ORDERED: DEXAMETHASONE 4 MG/ML VIAL IVP PRN (12:50)
[2017-09-21] MEDS ORDERED: NALOXONE HCL 0.4 MG/ML INJ IVP PRN (12:50)
[2017-09-21] MEDS ORDERED: fentaNYL 100 MCG/2 ML INJ IVP PRN (12:50)
[2017-09-21] MEDS ORDERED: OXYCODONE/APAP 5/325 TAB PO PRN (12:50)
[2017-09-21] MEDS ORDERED: ACETAMINOPHEN 500 MG TAB PO PRN (12:50)
[2017-09-21] MEDS ORDERED: MEPERIDINE 25 MG/ML SYR IVP PRN (12:50)
[2017-09-21] MEDS ORDERED: HYDROCODONE/APAP 5/325 TAB PO PRN (12:50)
--- NOTE | 2017-09-21 12:50 | POSTANESTH ---
Post Anesthetic Evaluation Cardiovascular Status: Similar to Pre-Op Cond Respiratory Status: Similar to Pre-op Cond. Level of Consciousness/Mental Status: Can Participate in Eval, Moderately Sleepy Pain Control: Adequate, Prn Tx Ordered Nausea/Vomiting Control: Adequate, Prn Tx Ordered Complications Possibly Related to Anesthesia: None Noted
--- NOTE | 2017-09-21 13:09 | GIREPORT ---
[facility] - Endoscopy Department Patient Name: Tito Stevens Procedure Date: 09/21/2017 12:19 PM Patient Type: Outpatient Attending MD/ ER Physician: Adonay Crum MD Procedure: Colonoscopy Indications: Chronic diarrhea Patient Profile: 62 year old male presents for evaluation of diarrhea/hematochezia. Providers: Adonay Crmu MD Medicines: Monitored Anesthesia Care Complications: No immediate complications. Estimated blood loss: Minimal. Description of Procedure: After obtaining informed consent, the scope was passed under direct vis ion. Throughout the procedure, the patient's blood pressure, pulse, and oxyg en saturations were monitored continuously. The Colonoscope with irrigatio n channel was introduced through the anus and advanced to the cecum, identified by appendiceal orifice and ileocecal valve. The colonoscopy was performed without difficulty. The patient tolerated the procedure well. The quality of the bowel preparation was good. The terminal ileum, ileoceca l valve, appendiceal orifice, and rectum were photographed. Findings: The perianal and digital rectal examinations were normal. Pertinent negatives include no palpable rectal lesions. A 14 mm polyp was found in the rectum. The polyp was sessile. The polyp was removed with a hot snare. Resection and retrieval were complete. Two sessile polyps were found in the ascending colon. The polyps were 3 to 4 mm in size. These polyps were removed with a cold snare. Resection and retrieval were complete. Biopsies for histology were taken with a cold forceps for evaluation of microscopic colitis. The terminal ileum appeared normal. Many diverticula were found in the sigmoid colon, descending colon and transverse colon. Estimated Blood Loss: Estimated blood loss was minimal. Post Op Diagnosis: - One 14 mm polyp in the rectum, removed with a hot snare. Resected and retrieved. - Two 3 to 4 mm polyps in the ascending colon, removed with a cold snar e. Resected and retrieved. - The examined portion of the ileum was normal. - Biopsies were taken with a cold forceps for evaluation of microscopic colitis. - Etiology? No obvious cause of symptoms seen. Suspect hematochezia is hemorrhoidal in absence of any other cause. Await biopsy results. Recommendation: - Discharge patient to home (with escort). - Resume previous diet. - Continue present medications. - Repeat colonoscopy in 3 years for surveillance (polyp >1cm) - Use fiber, for example Citrucel, Fibercon, Konsyl or Metamucil. - Await pathology results. - Thank you for allowing me to participate in the care of your patient. Attending Participation: I personally performed the entire procedure. Adonay Crum MD Adonay Crum MD 09/21/2017 1:08:53 PM This report has been signed electronicallyAdonay Crum MD Number of Addenda: 0 Note Initiated On: 09/21/2017 12:19 PM Total Procedure Duration Time 0 hours 26 minutes 37 seconds [email or web address]
[2017-09-21 13:36] VITALS: O2SAT 93
[2017-09-21 13:39] VITALS: TEMP 98.4
[2017-09-21 13:50] VITALS: BP 112/84; RESP 18
== END 2017-09-21 15:10 | disposition home or self-care (01) ==
LOC: FSGY 11:06
PROVIDERS: ATTEND Internal Medicine Gastroenterology
DX: K52.9 Noninfective gastroenteritis and colitis, unspecified (principal); K63.5 Polyp of colon; K62.1 Rectal polyp; K92.1 Melena; I25.10 Atherosclerotic heart disease of native coronary artery without angina pectoris; G47.33 Obstructive sleep apnea (adult) (pediatric); I10 Essential (primary) hypertension; I25.2 Old myocardial infarction; E78.5 Hyperlipidemia, unspecified
CPT/HCPCS: J2001; J2370; J2704